=== PATIENT | female | born 1960 | race Caucasian/White ===

== ENCOUNTER 2019-01-12 11:15 | Emergency (ER) | payer OTHER ==
[~2019-01-12] VITALS: Ht 160 cm; Wt 56.7 kg
[2019-01-12] MEDS ORDERED: IMITREX 25 MG T25 M1 PO (11:30)
[2019-01-12] MEDS ORDERED: PROPRANOLOL 1010 MG PO (11:30)
[2019-01-12 12:45] VITALS: BP 142/71
== END 2019-01-12 12:52 | disposition home or self-care (01) ==
LOC: M.ERS 11:15
DX: M79.662 Pain in left lower leg (principal); M81.0 Age-related osteoporosis without current pathological fracture; G43.909 Migraine, unspecified, not intractable, without status migrainosus; Z90.89 Acquired absence of other organs; Z90.710 Acquired absence of both cervix and uterus; Z86.011 Personal history of benign neoplasm of the brain; Z88.5 Allergy status to narcotic agent